=== PATIENT | female | born 1950 | race Caucasian/White ===

== ENCOUNTER → 2021-06-23 | Outpatient (CLI) | payer BC ==
[2021-06-23 14:15] LABS: ABSOLUTE NEUTROPHILS 6.4 thou/uL (1.4-8.2); BASOPHILS 0.4 % (0.0-2.0); EOSINOPHILS 0.6 % (0.0-3.0); HEMATOCRIT 41.5 % (37.0-47.0); HEMOGLOBIN 13.7 gm/dL (12.0-15.0); LYMPHOCYTES 21.4 % (24.0-44.0); MCH 29.9 pg (26.0-34.0); MCV 90.5 fL (80.0-100.0); MONOCYTES 6.8 % (1.0-8.0); PLATELET COUNT 514 thou/uL (150-400); POLYS 70.8 % (36.0-66.0); RBC 4.58 mil/uL (4.20-5.00); RDW 12.7 % (10.5-14.5); WBC 9.1 thou/uL (4.0-11.0)
[2021-06-23 14:47] LABS: ALBUMIN 3.9 g/dL (3.4-5.0); ANION GAP 13 mmol/L (7-16); BUN 15 mg/dL (7-18); CALCIUM 9.1 mg/dL (8.5-10.1); CHLORIDE 101 mmol/L (98-107); CHOLESTEROL 250 mg/dL (<200); CO2 27 mmol/L (21-32); CREATININE 0.6 mg/dL (0.6-1.0); GLUCOSE 105 mg/dL (74-106); HDL CHOLESTEROL 55 mg/dL (>40); LDL CHOLESTEROL 170 mg/dL (<100); SGOT 17 U/L (15-37); SGPT 25 U/L (30-65); SODIUM 141 mmol/L (136-145); TC:HDL 4.5 Ratio (Not establshd); TOTAL BILIRUBIN 0.4 mg/dL (0.2-1.0); TOTAL PROTEIN 7.7 g/dL (6.4-8.2); TRIGLYCERIDE 127 mg/dL (<150); VLDL 25 mg/dL (<40)
== END ==
LOC: RAD 12:59
PROVIDERS: ATTEND Nurse Practitioner
DX: M47.817 Spondylosis without myelopathy or radiculopathy, lumbosacral region (principal); I10 Essential (primary) hypertension; M54.50 Low back pain, unspecified; Z20.822 Contact with and (suspected) exposure to COVID-19